=== PATIENT | male | born 1955 | race Caucasian/White ===

== ENCOUNTER → 2016-12-29 | Outpatient (CLI) | payer SELFPAY ==
[~2016-12-29] MED LIST: ALDACTONE25 MG PO; FOLIC ACID1 MG PO; KENALOG CREAM 015 GM TOP; LACTULOSE10 GM/15 M PO; LASIX40 MG PO; NEURONTIN 300300 MG PO; PROTONIX40 MG PO; THERAGRAN TAB1 EA PO; THIAMINE HCL100 MG PO
== END ==
LOC: HEART 5 10:31
DX: R06.02 Shortness of breath (principal); J40 Bronchitis, not specified as acute or chronic
CPT/HCPCS: 94060; 94729